=== PATIENT | female | born 2000 | race Caucasian/White ===

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

== ENCOUNTER → 2018-04-28 08:23 | Outpatient (CLI) | payer OTHER, SELFPAY ==
--- NOTE | 2018-04-28 08:32 | XR_ITS ---
XR wrist LT min 3V HISTORY follow-up fracture ITS.REASON: EXTRA-ARTICULAR FX DISTAL LT RADIUS ORDERING PHYSICIAN: Colleen Bettencourt PATIENT AGE: 17 years Comparison: 03/28/2018 FINDINGS: Cortical irregularity involving the central distal aspect of the radius is again noted which may be due to a nondisplaced minimal impaction type fracture. Please correlate with patient's symptoms. No new findings evident. IMPRESSION: Possible mild impaction of the distal radius overall not significant change. Please correlate with patient's symptoms and physical exam
== END ==
PROVIDERS: PCP Family Medicine Geriatric Medicine; Visit Provider Family Medicine Geriatric Medicine
DX: S52.552D Other extraarticular fracture of lower end of left radius, subsequent encounter for closed fracture with routine healing (principal)
CPT/HCPCS: 73110

== ENCOUNTER 2019-11-13 16:17 | Outpatient (RCR) | payer OTHER, SELFPAY | END 2019-11-13 16:45 | disposition home or self-care (01) | LOC: PT 16:17 | PROVIDERS: Visit Provider Orthopaedic Surgery | DX: M65.4 Radial styloid tenosynovitis [de Quervain] (principal); M77.9 Enthesopathy, unspecified | CPT/HCPCS: 97760 ==

== ENCOUNTER 2022-04-22 14:41 | Emergency (ER) | payer OTHER, SELFPAY ==
--- NOTE | 2022-04-22 14:45 | XR_ITS ---
FINAL REPORT CLINICAL HISTORY: injury, pt states that she fell this morning and twisted her ankle FINDINGS: LEFT ANKLE Three views of the left ankle were obtained. There is no acute fracture or dislocation. The joint spaces and mortise are intact. There is no soft tissue abnormality. IMPRESSION: No acute bony abnormality. Reviewed, Interpreted and Dictated by Jareth Waddell III, MD Transcribed by Sol Can Authenticated and [facility]
[2022-04-22 14:50] VITALS: BP 180/96; PULSE 81; RESP 16; TEMP 36.7; O2SAT 98; BMI 37.3
--- NOTE | 2022-04-22 15:12 | HMH.EDUTC ---
[facility] Disposition Clinical Impression: Ankle sprain Qualifiers: Encounter type: initial encounter Involved ligament of ankle: unspecified ligament Laterality: left Qualified Code(s): S93.402A - Sprain of unspecified ligament of left ankle, initial encounter Disposition: Home, Self-Care Condition on Discharge: Good Instructions: Ankle Sprain, DI for Ankle Sprain, How To Perform RICE (Rest, Ice, Compress, Elevate) Additional Instructions: *weight bearing as tolerated *RICE, Rest the extremity, Ice 15-20 minutes 3-4 times daily, Compress- wear the pedro luis wrap as discussed as much as possible to help reduce swelling and pain, Elevate the extremity when at rest *Pedro Luis wrap is for support and help control swelling, use it except in the shower. Be sure that is not to tight but not to loose either *Elevate when resting *Ibuprofen 600-800mg every 6-8 hours as needed for pain an inflammation. If need something more can take Tylenol in between doses of Ibuprofen to help Immediately follow up with your family doctor for new or worsening of symptoms, or no noticeable improvement over the next 3-5 days Referrals: Provider,Referral, MD [Primary Care Provider] - As needed Time of Disposition: 16:40 Medical Decision Making - Delgado Inquiry Pt receiving controlled substance: No Delgado was queried for this patient: No Vital Signs: 04/22/22 14:50 04/22/22 15:53 Temperature 98.1 F 98.1 F Temperature Source Oral Pulse Rate 81 Pulse Rate [Left Brachial] 81 Respiratory Rate 16 16 Blood Pressure 163/96 H Blood Pressure [Left Arm] 180/96 H Blood Pressure Mean [Left Arm] 124 Blood Pressure Source [Left Arm] Automatic Cuff Blood Pressure Position [Left Arm] Sitting 02 Sat by Pulse Oximetry 98 Oxygen Delivery Method Room Air - Radiology Data #1 Image(s): Ankle Image Reviewed: Yes I reviewed the patient's radiology image Preliminary Findings: Normal/NAD, No Fracture Seen [facility] HPI - General Stated complaint: left ankle pain Time Seen by Provider: 04/22/22 15:12 Mode of Arrival: Ambulatory Source of Information: Patient Limitations: No Limitations Description of Symptoms (Recalled from Triage Doc. by RN): PATIENT STATES SHE TWISTED HER LEFT ANKLE TODAY HEENT Symptoms (Recalled from RN notes): No Resp Symptoms (Recalled from RN notes): No Skin Symptoms (Recalled from RN notes): No MS Symptoms (Recalled from RN notes): Yes Functional Status (Recalled from RN notes): WNL - History of Present Illness Provider Complaint: Patient states that she twisted her ankle this morning before she went to work and she has continued to have pain in her left ankle when she walks or puts weight on it States that this evening she was still having pain so she came in to get it checked out - Related Data Previous Rx's Medication Instructions Recorded Ibuprofen [Ibuprofen 600mg 600 mg PO Q6HP PRN #30 tab 10/28/19 Tablet] Allergies Allergy/AdvReac Type Severity Reaction Status Date / Time No Known Allergies Allergy Verified 03/21/20 10:30 - Worker's Comp Is this a Worker's Comp case?: No [facility] History - Hepatitis A Screen Attestation statement:: This patient has been screened for Hepatitis A risk factors. I have reviewed the patient's past medical history: Yes Medical History: Reports:: Supraventricular Tachycardia Denies:: Diabetes Mellitus Type 1 Laterality Cases: Bilateral: Tonsillectomy - Social History Smoking Status: Never smoker Alcohol Intake: never Occupational Status: other Family Hx:: Hypertension ROS Obtained: Yes All systems reviewed & no additional complaints, Yes Systems reviewed as appropriate & no additional complaints - Constitutional Constitutional: Reports system reviewed and no additional complaints, except as docu, Denies body ache, Denies chills, Denies fever(s) - ENT Ears, Nose, Mouth, and Throat: Reports system reviewed and no additional complaints, except as docu - Cardiovascul
[2022-04-22 15:53] VITALS: BP 163/96; PULSE 81; RESP 16; TEMP 36.7; O2SAT 98
== END 2022-04-22 16:01 | disposition home or self-care (01) ==
LOC: UTC 14:44
PROVIDERS: Emergency Provider Nurse Practitioner
DX: S93.402A Sprain of unspecified ligament of left ankle, initial encounter (principal)
CPT/HCPCS: 73610; 99212; G0463

== ENCOUNTER 2025-06-13 14:49 | Emergency (ER) | payer OTHER, SELFPAY ==
--- OUTSIDE RECORDS SUMMARY | 2025-05-09 11:40 | XMS_ITS | Encounter Summary ---
Author Organization [facility] Address [address] [place] [address] Care Team Providers Care Health Unit Coordinator Name Role Phone Provider, Samara Ji Primary Care Provid er Unavailable Reason for Visit * Reason Comments Post-op Follow-up Pt denies pain overa ll doing good. Encounter Details Date Type Department Care Team (Late st Contact Info) Description 05/09/2025 11:40 AM EDT Office Visit Obstetrics & Gynecology [address] [place] [address] Nitin Vanegas MD [address] [place] [address] Postop check (Primary Dx); Primary hypertension Social History Tobacco Use Types Packs/Day Years Used Date Smoking Tobacco: Never Smokeless Tobacco: Never Alcohol Use Standard Drinks/Week Comments Not Currently 0 (1 standard drink = 0.6 oz pur e alcohol) Rare PHQ-2 Answer Date Recorded Patient Health Questionnaire-2 Score 0 05/09/2025 PHQ-9 Answer Date Recorded Patient Health Questionnaire-9 Score 0 12/20/2024 Jamul Depression Scale Answer Date Recorded Jamul Depression Scale Total 0 04/08/2025 The thought of harming myself has occurred to me . Never 04/08/2025 PHQ-2A Answer Date Recorded Patient Health Questionnaire-2 Score 0 03/23/2023 Comments No Sex and Gender Information Value Date Recorded Sex Assigned at Not on file Legal Sex Female 5:54 PM EDT Gender Identity Not on file Sexual Orientation Not on file documented as of this encounter Last Filed Vital Signs Vital Sign Reading Time Taken Comments Blood Pressure 148/92 05/09/2025 11:34 AM EDT Pulse 74 05/09/2025 11:34 AM EDT Temperature 37 C (98.6 F) 05/09/2025 11:34 AM EDT Respiratory Rate - - Oxygen Saturation 99% 05/09/2025 11: 34 AM EDT Inhaled Oxygen Concentration - - Weight 98.4 kg (216 lb 14.9 oz) 025 11:34 AM EDT Height 154.9 cm (5' 1 ) 05/09/2025 11:3 4 AM EDT Body Mass Index 40.99 05/09/2025 11:34 AM EDT documented in this encounter Functional Status * Over the past 2 weeks, how often have you been bothered by any of the following problems? Question Answer Date of Assessment Author Little interest or pleasure in doing things Not at all 05/09/2025 11:36 AM EDT Purvi Champagne Feeling down, depressed, or hopeless Not at all 05/09/2025 11:36 AM EDT Purvi Champagne Patient Health Questionnaire -2 Score 0 05/09/2025 11:36 AM EDT Purvi Champagne * If you checked off any problems on this questionnaire so far, Question Answer Date of Assessment Author How difficult have these problems made it for you to do your work, take care of things at home, or get along with other people? Not difficult at all 05/09/2025 11:36 AM EDT Purvi Champagne documented as of this encounter Miscellaneous Notes * Progress Notes - Nitin Vanegas MD - 05/09/2025 11:40 AM EDT Gynecology Progress Note CC: postop visit S: Gaurang Orta is a 24 y.o. 4wks s/p RA-lap bilateral salpingectomy 04/09/25. Doing well since procedure. No vaginal bleeding/abnormal discharge. Pain well controlled: no longer on narcotic pain meds. No concern about incision healing. Normal bowel/bladder function, no constipation. No fever/chills/body aches. The patients medical, surgical, family, social history were reviewed, as well as her current medications and allergies. Review of Systems O: Vitals: 05/09/25 1134 BP: (!) 148/92 Pulse: 74 Temp: 37 ??C (98.6 ??F) SpO2: 99% Exam: Gen: NAD, well appearing Neuro: AAOx3 Resp: unlabored Abd: soft, nondistended, nontender, well healed laparoscopic incisions Path: Bilateral fallopian tubes without abnormality A/P: Gaurang Orta is a 24 y.o. 4wks s/p RA-lap BS, recovering as expected. Postoperative care - Reviewed pathology - reviewed precautions HCM - last pap neg cytology 02/2023 -- due for repeat cytology 02/2026 Primary HTN - continues nifedipine 60mg BID left over from -- still mildly hypertensive - amenable to establishing care with PCP for HTN mgt & healthcare maintenance. RTC: for annual in 1 year documented in this encounter Plan of Treatment Not on file documented as of this encounter Goals Goal Patient Goal Type Associated Problems Recent Progress Patient-Stated? Author Delayed Delivery Care Plan CPM S20 PP LABOR (OBSTETRICS) No Open Scheduling, Background documented as of this encounter Visit Diagnoses Diagnosis Postop check- Primary Follow-up examination, following unspecified surgery Primary hypertension Unspecified essential hypertension documented in this encounter Additional Health Concerns Active Problems Noted Date Diagnosed Date CPM S20 PP LABOR (OBSTETRICS) 07/28/2022 Assessment Noted Time PHQ-9 Depression Total Score: 0 12/20/19 25 8:35 AM EST A fall risk assessment has been complete d for the patient 05/09/2025 11:36 AM EDT A Body Mass Index follow-up plan has been documented for the patient 05/09/2025 11:57 AM EDT documented as of this encounter Care Teams Health Unit Coordinator Relationship Specialty Start Date End Date Provider, Samara Ji PCP - General 04/21/21 documented as of this encounter
--- NOTE | 2025-06-13 14:53 | ED_ITS ---
<Statement entered by Bree Bunch DO - 06/13/25 19:38> I was consulted by the REUBEN, and we discussed the complexity of problems being addressed. I approve the treatment and management plan for this patient's care in the emergency department, thus performing a substantial portion of the medical decision making. Bree Bunch DO Discharge Plan Disposition Patient Disposition: Home, Self-Care Condition: Good Prescriptions Prescriptions: New cefdinir 300 mg capsule 300 mg PO BID 7 Days Qty: 14 0RF No Action ibuprofen 600 MG tablet 600 mg PO Q6HP PRN (Reason: Mild Pain) Qty: 30 0RF Referrals Follow up/Referrals: Provider,Referral, MD [Primary Care Provider, Medical] - See instructions Activity Restrictions/Add. Instructions Additional Instructions/Restrictions: Please return to the emergency department with any worsening signs or symptoms. Please take your medication as prescribed. Please utilize ibuprofen and Tylenol for symptomatic relief. Clinical Impressions Clinical Impression: UTI (urinary tract infection) Instructions Patient Instructions: Acute Cystitis, DI for Urinary Tract Infection (UTI) Print Language Print Language: Greenlandic Discharge ED Provider: Bree Bunch General Adult HPI General Chief complaint: Back Pain/Injury Stated complaint: left upper back pain Time Seen by Provider: 06/13/25 14:53 Mode of Arrival: Ambulatory Source of Information: Patient Limitations: No Limitations History of Present Illness HPI narrative: 24-year-old female presents the emergency department with left-sided upper back pain located on the right thoracic region, with radiation around to her left flank and into her left-sided rib area, she denies any fever chills chest pain shortness of breath, does endorse remote history of fall 1 week ago through [employer] , admits to nausea no vomiting no constipation no diarrhea, does have some decreased urination, is 2-month status post what sounds like bilateral tubal ligation, states I have not yet had my period yet , denies urinary bladder or bowel dysfunction, denies any radicular type symptomatology, denies any saddle anesthesia. Initial triage vitals are unremarkable, patient denies any alcohol or drug use, other past medical history is unremarkable, she is taken Tylenol for this pain today with little to no relief of her symptomatology. Please note that above description of symptoms, in this electronic medical record under categorization of recalled from ER triage doctor by RN are reflective of an initial nursing assessment, however, is not reflective of my full history and physical exam that was personally taken and clarified. Consequentially, this preceding description of symptoms, which may include the patient's categorized chief complaint in the EMR, do not reflect my personal clinical impression, and the ultimate description of history of present illness and patient stated complaints should be deferred to this section of the note. Unless stated otherwise or congruent with this section of the note, additional signs, symptoms, or incongruence should be interpreted as inaccurate with my clinical impression. Onset (ago): week(s) Related Data Previous Rx's ?Medication ?Instructions ?Recorded ibuprofen 600 mg tablet 600 mg PO Q6HP PRN Mild Pain #30 10/28/19 tabs cefdinir 300 mg capsule 300 mg PO BID 7 days #14 cap s 06/13/25 Allergies Allergy/AdvReac Type Severity Reaction Status Date / Time No Known Allergies Allergy Verified 03/21/20 10:30 [facility] Disclaimer: The information contained in this section may have been updated after the patient was seen, as this information can be updated by other users. Social History Smoking Status: Never smoker alcohol intake: never current occupational status: other Travel in the last 8 weeks?: None Have you lived/traveled outside [place] in past 30 days?: No Contact w/someone who lives/traveled outside US past 30 days?: No Exposure to someone with infectious disease in past 14 days?: No Do you have a fever (greater than 100.4 F or 38 C)?: No Have you tested positive for COVID-19?: No Exposed to someone with COVID-19 in past 14 days?: No Do you have a sore throat?: No Do you have a cough?: No Do you have any weakness?: No Do you have any diarrhea?: No Are you experiencing any unusual bleeding?: No Do you have any muscle aches/pain?: Yes Do you have any abdominal pain?: No Are you experiencing loss of taste or smell?: No Other Medical History Have you received the Pneumonia Vaccine: No ROS Obtained: Yes All systems reviewed & no additional complaints except as documented Physical Exam General General appearance: alert and in no apparent distress Head Head exam: atraumatic and normocephalic Eye Eye exam: Present PERRL and EOMI ENT ENT exam: Present mucous membranes moist Neck Neck exam: Present normal inspection Chest Chest inspection: Present normal inspection and symmetric chest wall rise Respiratory Respiratory exam: Present normal lung sounds bilaterally; Absent respiratory distress Cardiovascular Cardiovascular exam: Present regular rate and normal rhythm Abdominal Exam Abdominal exam: Present soft; Absent tenderness Extremities Exam Extremities exam: Present normal inspection Back Exam Back exam: Present normal inspection, tenderness and paraspinal tenderness Comment: Paraspinal tenderness palpation to the mid thoracic spine, negative C-spine T- spine and L-spine spinal tenderness, negative C-spine paraspinal tenderness palpation, negative L-spine paraspinal spinal tenderness palpation Neurological Exam Neurological exam: Present alert, oriented X3 and other (Moves extremities command, 5 out of 5 strength in the bilateral lower and upper extremities.) Psychiatric Psychiatric exam: Present normal affect Skin Skin exam: Present warm and dry Medical Decision Making Medical Records Medical records reviewed: Yes I reviewed the patient's medical records. Screening: Per USPSTF and CDC recommendations, given the prevalence of disease in our region, it is our hospital?s policy to screen for HIV and viral Hepatitis for all patients aged 18 and over and those with ongoing risk factors. Delgado Inquiry Pt receiving controlled substance: No Delgado was queried for this patient: No Vital Signs: 06/13/25 15:01 06/13/25 15:24 06/13/25 17:17 Temperature 99.1 F 99.1 F Temperature Source Oral Oral Pulse Rate 87 75 Pulse Rate [Right] 87 Respiratory Rate 18 18 16 Blood Pressure 165/115 H 120/78 Blood Pressure [Left Arm] 165/115 H Blood Pressure Mean [Left Arm] 131 Blood Pressure Source Automatic Cuff Automatic Cuff Blood Pressure Source [Left Arm] Automatic Cuff Blood Pressure Position Supine Sitting Blood Pressure Position [Left Arm] Supine 02 Sat by Pulse Oximetry 100 100 98 Oxygen Delivery Method Room Air Room Air Room Air Lab Data Lab results reviewed: Yes I reviewed the patient's lab results. Lab Results 06/13/25 15:03: Urine Color Yellow, Urine Appearance Sl cloudy, Urine pH 6.0, Ur Specific [place] <= 1.005, Urine Protein Negative, Urine Glucose (UA) Negative, Urine Ketones Negative, Urine Blood 2+ A, Urine Nitrate Negative, Urine Bilirubin Negative, Urine Urobilinogen 0.2, Ur Leukocyte Esterase 3+ A, Urine RBC 5-10, Urine WBC 20-50, Ur Squamous Epith Cells 10-20, Urine Bacteria 3+, Urine HCG, Qual Negative 06/13/25 15:20: WBC 9.1, RBC 5.11, Hgb 15.4, Hct 43.4, MCV 84.9, MCH 30.1, MCHC 35.5 H, RDW 12.4, Plt Count 292, MPV 10.5 H, Neut % (Auto) 54.5, Lymph % (Auto) 37.0, [place] % (Auto) 6.5, Eos % (Auto) 1.4, Baso % (Auto) 0.4, Neut # (Auto) 5.0, Lymph # (Auto) 3.4, [place] # (Auto) 0.6, Eos # (Auto) 0.1, Baso # (Auto) 0.0, D- Dimer 0.70 H, Sodium 139, Potassium 4.2, Chloride 105, Carbon Dioxide 26, Anion Gap 12.2, BUN 13, Creatinine 0.70, Estimated Creat Clear 174, Estimated GFR 101, Est GFR ( Amer) 122, Glucose 85, Calcium 9.3, Total Bilirubin 0.3, AST 33, ALT 35, Alkaline Phosphatase 70, Troponin I < 0.01, NT-Pro-B Natriuret Pep 168 H, Total Protein 7.3, Albumin 4.4, Globulin 2.9, Albumin/Globulin Ratio 1.5, Lipase 35 06/13/25 15:20 06/13/25 15:20 Orders (Tests/Meds): ED MEDICATIONS Generic Name Dose Route Start Last Admin Trade Name Freq PRN Reason Stop Dose Admin Ceftriaxone Sodium 2 gm/ 100 mls @ 200 mls/hr 06/13/25 17:30 06/13/25 17:22 Sodium Chloride IV 06/23/25 17:29 200 mls/hr Q24H NICOLE Administration Discontinued Medications Generic Name Dose Route Start Last Admin Trade Name Freq PRN Reason Stop Dose Admin Iopamidol 70 ml 06/13/25 16:19 06/13/25 16:20 Iopamidol-370 (76%);100ml Bottle IV 06/13/25 16:20 70 ml ONCE ONE Administration Ketorolac Tromethamine 15 mg 06/13/25 14:58 06/13/25 15:21 Ketorolac 30mg/Ml Vial IV 06/13/25 14:59 15 mg ONCE ONE Administration Ondansetron HCl 4 mg 06/13/25 14:59 06/13/25 15:22 Ondansetron 4mg/2ml Vial IV 06/13/25 15:00 4 mg ONCE ONE Administration Sodium Chloride 50 ml 06/13/25 16:19 06/13/25 16:20 0.9 % Sodium Chloride 50 Ml Vial IV 06/13/25 16:20 50 ml ONCE ONE Administration Sodium Chloride 10 ml 06/13/25 16:19 06/13/25 16:20 Sodium Chloride 0.9% 10ml Syr (Rad Only) IV 06/13/25 16:20 10 ml ONCE ONE Administration ORDERS Category Date Time Status CT abdomen pelvis w con Stat Cat Scan 06/13/25 16:[address] angio chest PE protocol Stat Cat Scan 06/13/25 16:13 Completed Complete Blood Count Auto Diff Stat Lab 06/13/25 15:20 Completed Comprehensive Metabolic Panel Stat Lab 06/13/25 15:20 Completed D-Dimer Stat Lab 06/13/25 15:20 Completed HIV Combo Stat Lab 06/13/25 15:20 Received Hepatitis C Ab Qual. W/ RFX Stat Lab 06/13/25 15:20 Received Lipase Stat Lab 06/13/25 15:20 Completed NT Pro Brain Natriuretic Pep. Stat Lab 06/13/25 15:20 Completed Troponin I Q3H Lab 06/13/25 18:00 Ordered Troponin I Q3H Lab 06/13/25 21:00 Ordered Troponin I Stat Lab 06/13/25 15:20 Completed Urinalysis and Microscopic Stat Lab 06/13/25 15:03 Completed Urine , HCG Qual. Stat Lab 06/13/25 15:03 Completed Urine Culture Stat Micro 06/13/25 15:03 Received Medical Decision Narrative: 24-year-old female presents the emergency department with left-sided midthoracic back pain, for 1 week, after remote fall, differential diagnosis clued but not limited to, costochondritis, thoracic myofascial strain, cardiac arrhythmia, electrolyte disturbance, PE, ACS, pneumonia, acute UTI among others I discussed this patient's case with the attending physician Dr. Bunch she saw and examined the patient as well. Will obtain basic laboratory studies, D-dimer lipase proBNP troponin urinalysis, urine hCG qualitative, troponin, EKG, will give 15 mg IV Toradol and 4 mg of Zofran for pain and nausea. CBC unremarkable D-dimer is elevated at 0.7, thus will obtain CTA chest without contrast PE protocol CMP unremarkable hCG negative UA is notable for 2+ hematuria, 3+ leukocyte esterase, 20-50 WBCs, 3+ urine bacteria. This will obtain CT and pelvis with contrast to rule out a nephrolithiasis. proBNP is mildly elevated at 168, troponin within normal limits at less than 0.01, lipase in normal limits. I reviewed the patient's CT abdomen pelvis with contrast on the corresponding radiologic report no acute abnormalities identified. I reviewed the CTA chest with and without contrast PE protocol along with the corresponding radiologic report, no evidence of acute pulmonary embolism. Will give 2 g IV Rocephin for acute pyelonephritis versus UTI. I discussed all the results with the patient at the bedside, patient voiced understanding and agreed with current treatment plan/discharge plan, will treat patient for acute UTI, with cefdinir 300 mg p.o. twice daily for 7 days, first dose of ceftriaxone given here in the emergency department. Patient was given strict ED return precautions, patient voiced understanding, will follow-up with PCP in the upcoming days. Critical Care Critical Care Time Critical Care Time: No
[2025-06-13 15:01] VITALS: BP 165/115; PULSE 87; RESP 18; TEMP 37.3; O2SAT 100; BMI 39.0
[2025-06-13 15:07] LABS: Microscopic, Urine URINE MICROSCOPIC (MICROSCOPIC)
--- OUTSIDE RECORDS SUMMARY | 2025-06-13 15:11 | XMS_ITS | Encounter Summary ---
Author Organization Healthcare Address [address] [place] [address] Care Team Providers Care Livestock Haulier Name Role Phone Provider, Samara [place] Primary Care Provid er Unavailable Reason for Visit * Reason Comments Med Refill Encounter Details Date Type Department Care Team (Late st Contact Info) Description 01/22/2023 Refill Obstetrics & Gynecology [address] [place] [address] Savanna Kirkpatrick, LARGE [employer]IMAL HUSBANDRY TECHNICIAN, CN [address] [place] [address] Chronic hypertension affecting Social History Tobacco Use Types Packs/Day Years Used Date Smoking Tobacco: Never Smokeless Tobacco: Never Alcohol Use Standard Drinks/Week Comments Not Currently 0 (1 standard drink = 0.6 oz pur e alcohol) Rare PHQ-2 Answer Date Recorded Patient Health Questionnaire-2 Score 0 01/24/2023 Comments Yes Sex and Gender Information Value Date Recorded Sex Assigned at Not on file Legal Sex Female 5:54 PM EDT Gender Identity Not on file Sexual Orientation Not on file COVID-19 Exposure Response Date Recorded In the last 10 days, have yo u been in contact with someone who was confirmed or suspected to have Coronavirus/COVID-19? No / Unsure 01/24/2023 12:50 PM EDT documented as of this encounter Functional Status * Over the past 2 weeks, how often have you been bothered by any of the following problems? Question Answer Date of Assessment Author Little interest or pleasure in doing things Not at all 01/24/2023 1:38 PM EDT Divya Murphy Feeling down, depressed, or hopeless Not at all 01/24/2023 1:38 PM EDT Divya Murphy Patient Health Questionnaire-2 Score 0 01/24/2023 1:38 PM EDT Moe Murphy documented as of this encounter Plan of Treatment Not on file documented as of this encounter Goals Goal Patient Goal Type Associated Problems Recent Progress Patient-Stated? Author Delayed Delivery Care Plan CPM S[facility] (OBSTETRICS) No Open Scheduling, Background documented as of this encounter Visit Diagnoses Diagnosis Chronic hypertension affecting documented in this encounter Additional Health Concerns Active Problems Noted Date Diagnosed Date CPM S[facility] (OBSTETRICS) 07/28/2022 Assessment Noted Time A fall risk assessment has been complete d for the patient 01/17/2023 1:49 PM EDT documented as of this encounter Care Teams Livestock Haulier Relationship Specialty Start Date End Date Provider, Samara Ji PCP - General 04/21/21 documented as of this encounter
--- OUTSIDE RECORDS SUMMARY | 2025-06-13 15:11 | XMS_ITS | Encounter Summary ---
Author Organization Healthcare Address [address] [place] [address] Care Team Providers Care Inventory Control/Shipping Receiving Name Role Phone Provider, Samara [place] Primary Care Provid er Unavailable Encounter Details Date Type Department Care Team (Late st Contact Info) Description 04/12/2025 Results Follow-Up Obstetrics & Gynecology [address] [place] [address] Nitin Vanegas MD [address] [place] [address] Social History Tobacco Use Types Packs/Day Years Used Date Smoking Tobacco: Never Smokeless Tobacco: Never Alcohol Use Standard Drinks/Week Comments Not Currently 0 (1 standard drink = 0.6 oz pur e alcohol) Rare PHQ-2 Answer Date Recorded Patient Health Questionnaire-2 Score 0 05/09/2025 PHQ-9 Answer Date Recorded Patient Health Questionnaire-9 Score 0 12/20/2024 [place] Depression Scale Answer Date Recorded [place] Depression Scale Total 0 04/08/2025 The thought of harming myself has occurred to me . Never 04/08/2025 PHQ-2A Answer Date Recorded Patient Health Questionnaire-2 Score 0 03/23/2023 Comments No Sex and Gender Information Value Date Recorded Sex Assigned at Not on file Legal Sex Female 5:54 PM EDT Gender Identity Not on file Sexual Orientation Not on file documented as of this encounter Functional Status [...] Purvi Champagne documented as of this encounter Plan of Treatment Not on file documented as of this encounter Goals Goal Patient Goal Type Associated Problems Recent Progress Patient-Stated? Author Delayed Delivery Care Plan CPM S[facility] (OBSTETRICS) No Open Scheduling, Background documented as of this encounter Visit Diagnoses Not on filedocumented in this encounter Additional Health Concerns Active Problems Noted Date Diagnosed Date CPM S[facility] (OBSTETRICS) 07/28/2022 Assessment Noted Time PHQ-9 Depression Total Score: 0 12/20/19 25 8:35 AM EST A fall risk assessment has been complete d for the patient 04/08/2025 9:37 AM EDT A Body Mass Index follow-up plan has been documented for the patient 04/08/2025 11:49 AM EDT documented as of this encounter Care Teams Inventory Control/Shipping Receiving Relationship Specialty Start Date End Date Provider, Samara Ji PCP - General 04/21/21 documented as of this encounter
--- OUTSIDE RECORDS SUMMARY | 2025-06-13 15:11 | XMS_ITS | Encounter Summary ---
Author Organization Healthcare Address [address] [place] [address] Care Team Providers Care Stone Sandblaster Name Role Phone Provider, Samara [place] Primary Care Provid er Unavailable Encounter Details Date Type Department Care Team (Late st Contact Info) Description 02/18/2025 Results Follow-Up Obstetrics & Gynecology [address] [place] [address] Nitin Vanegas MD [address] [place] [address] Social History Tobacco Use Types Packs/Day Years Used Date Smoking Tobacco: Never Smokeless Tobacco: Never Alcohol Use Standard Drinks/Week Comments Not Currently 0 (1 standard drink = 0.6 oz pur e alcohol) Rare PHQ-2 Answer Date Recorded Patient Health Questionnaire-2 Score 0 04/08/2025 PHQ-9 Answer Date Recorded Patient Health Questionnaire-9 Score 0 12/20/2024 [place] Depression Scale Answer Date Recorded [place] Depression Scale Total 0 04/08/2025 The thought of harming myself has occurred to me . Never 04/08/2025 PHQ-2A Answer Date Recorded Patient Health Questionnaire-2 Score 0 03/23/2023 Comments Yes Sex and Gender Information Value [...] pleasure in doing things Not at all 04/08/2025 9:37 AM EDT Purvi Champagne Feeling down, depressed, or hopeless Not at all 04/08/2025 9:37 AM EDT Purvi Champagne Patient Health Questionnaire -2 Score 0 04/08/2025 9:37 AM EDT Purvi Champagne * If you checked off any problems on this questionnaire so far, Question Answer Date of Assessment Author How difficult have these problems made it for you to do your work, take care of things at home, or get along with other people? Not difficult at all 04/08/2025 9:37 AM EDT Purvi Champagne documented as of [...] has been complete d for the patient 02/18/2025 8:41 AM EDT A Body Mass Index follow-up plan has been documented for the patient 02/14/2025 8:34 AM EDT documented as of this encounter Care Teams Stone Sandblaster Relationship Specialty Start Date End Date Provider, Samara Ji PCP - General 04/21/21 documented as of this encounter
--- OUTSIDE RECORDS SUMMARY | 2025-06-13 15:11 | XMS_ITS | Clinical Summary ---
Author Organization [facility] Address [address] [place] [address] Care Team Providers Care Manual Qa Tester Name Role Phone Provider, Samara Ji Primary Care Provid er Unavailable Allergies No known active allergies Medications Blood Pressure Monitoring (Blood Pressure Cuff) miscIndications:C hronic hypertension affecting 1 each 1 (one) time each day. 1 each 09/13/2024 Active NIFEdipine XL (Procardia XL) 60 MG 24 hr tabletIndications :Primary hypertension Take 1 tablet by mouth 2 times a day. Do not crush, chew, or split. 60 tablet 3 05/09/2025 Active Active Problems Problem Noted Date Diagnosed Date GBS bacteriuria 10/03/2024 35 weeks gestation of 08/24/2024 Overview (02/11/2025): labs reviewed: O+ Rubella immune. Other PNL WNL. Baseline P:C 0.1, baseline OBP normal. GBS bacteriuria on 1T UCX -- s/p tx with amoxicillin x7d. Ultrasounds: Dated by LMP c/w 9w TVUS. Anatomy US WNL with limited survey. F/up US 11/23 -- normal completed anatomy, EFW 33%, AC 25%. Growth US 28w & 32w WNL. Genetic Screening: NIPT low risk, H14 negative. Immunizations: Declined flu vax. Tdap 12/20. Delivery Planning: Anticipate - h/o x2 (PP to 2568g). No later than 38w0d for CHTN -- scheduled for 02/26 -- pending US & BP control. Feeding: Breast -- discussed pump RX Contraception: Desires sterilization -- KMA form signed 01/24 & scanned into chart. Assessment & Plan (02/11/2025 1:35 PM EDT): BP elevated again today & gradually increasing at home -- start labetalol 200mg TID plus nifedipine XL 90 mg BID. Extensively reviewed pre-E precautions. Continue vitamins + bASA. Reviewed hydration goals, FKCs. Repeat growth q4w -- last WNL at 32w on 01/17 -- next US 02/14 NSTs 2x/wk Plan for 38w delivery at latest -- IOL scheduled 02/26 @ 38w0d pending cervical exam & ongoing BP control. Reviewed precautions to call or present for evaluation -- reviewed PTL precautions. Assessment & Plan (01/28/2025 1:45 PM EDT): labs reviewed: O+ Rubella immune. Other PNL WNL. Baseline P:C 0.1, baseline OBP normal. GBS bacteriuria on 1T UCX -- s/p tx with amoxicillin x7d. Ultrasounds: Dated by LMP c/w 9w TVUS. Anatomy US WNL with limited survey. F/up US 11/23 -- normal completed anatomy, EFW 33%, AC 25%. Growth US 28w & 32w WNL. Genetic Screening: NIPT low risk, H14 negative. Immunizations: Declined flu vax. Tdap 12/20. Delivery Planning: Anticipate - h/o x2 (PP to 2568g). Discuss timing pending BP control & next growth US. Feeding: Breast -- discussed pump RX Contraception: Desires sterilization -- KMA form signed 01/24 & scanned into chart. Continue vitamins + bASA. Reviewed hydration goals, FKCs. Repeat growth q4w -- last WNL at 32w on 01/17. Reviewed precautions to call or present for evaluation -- reviewed PTL precautions. Assessment & Plan (01/03/2025 10:24 AM EDT): labs reviewed: O+ Rubella immune. Other PNL WNL. Baseline P:C 0.1, baseline OBP normal. GBS bacteriuria on 1T UCX -- s/p tx with amoxicillin x7d. Ultrasounds: Dated by LMP c/w 9w TVUS. Anatomy US WNL with limited survey. F/up US 11/23 -- normal completed anatomy, EFW 33%, AC 25%. Growth US 28w WNL. Genetic Screening: NIPT low risk, H14 negative. Immunizations: Declined flu vax. Tdap 12/20. Delivery Planning: Anticipate - h/o x2 (PP to 2568g) Feeding: Discuss further Contraception: Discuss further. Continue vitamins + bASA. Reviewed hydration goals, FKCs. Repeat growth q4w - scheduled 01/17. Reviewed precautions to call or present for evaluation -- reviewed PTL precautions. Assessment & Plan (12/29/2024 3:57 PM EST): labs reviewed: O+ Rubella immune. Other PNL WNL. Baseline P:C 0.1, baseline OBP normal. GBS bacteriuria on 1T UCX -- s/p tx with amoxicillin x7d. Ultrasounds: Dated by LMP c/w 9w TVUS. Anatomy US WNL with limited survey. F/up US 11/23 -- normal completed anatomy, EFW 33%, AC 25%. Growth US 28w WNL. Genetic Screening: NIPT low risk, H14 negative. Immunizations: Declined flu vax. Tdap today 12/20. Delivery Planning: Anticipate - h/o x2 (PP to 2568g) Feeding: Discuss further Contraception: Discuss further. Continue vitamins + bASA. Reviewed hydration goals, FKCs. Repeat growth in 4w. Reviewed precautions to call or present for evaluation -- reviewed PTL precautions. Assessment & Plan (12/16/2024 7:18 PM EST): labs reviewed: O+ Rubella immune. Other PNL WNL. Baseline P:C 0.1, baseline OBP normal. GBS bacteriuria on 1T UCX -- s/p tx with amoxicillin x7d. Ultrasounds: Dated by LMP c/w 9w TVUS. Anatomy US WNL with limited survey. F/up US 11/23 -- normal completed anatomy, EFW 33%, AC 25%. Genetic Screening: NIPT low risk, H14 negative. Immunizations: Declined flu vax. Tdap for next visit. Delivery Planning: Anticipate - h/o x2 (PP to 2568g) Feeding: Discuss further Contraception: Discuss further. Continue vitamins + bASA. Reviewed hydration goals, FKCs. NST done today for persistent cramping/contractions -- no ctx on tocometry & FHRT reactive. IF this occurs again & persistent, advised pt to present to L&D for evaluation. Reviewed precautions to call or present for evaluation -- reviewed PTL precautions. Assessment & Plan (12/01/2024 1:25 PM EST): labs reviewed: O+ Rubella immune. Other PNL WNL. Baseline P:C 0.1, baseline OBP normal. GBS bacteriuria on 1T UCX -- s/p tx with amoxicillin x7d. Ultrasounds: Dated by LMP c/w 9w TVUS. Anatomy US WNL with limited survey. F/up US 11/23 -- normal completed anatomy, EFW 33%, AC 25%. Genetic Screening: NIPT low risk, H14 negative. Immunizations: Declined flu vax. Need to discuss Tdap for next visit. Delivery Planning: Anticipate - h/o x2 (PP to 2568g) Feeding: Discuss further Contraception: Discuss further. Continue vitamins + bASA. Reviewed precautions to call or present for evaluation -- reviewed PTL precautions. Assessment & Plan (09/23/2024 1:21 PM EST): labs reviewed: O+ Rubella immune. Other PNL WNL. Baseline P:C 0.1, baseline OBP normal. GBS bacteriuria on 1T UCX -- s/p tx with amoxicillin x7d. Pap 02/2023 negative - repeat cytology 2025. Ultrasounds: Dated by LMP c/w today's TVUS - DALILA 03/12/25. NT US discussed & ordered. Genetic Screening: Discussed first and second trimester screening options including NIPT, FTS, NT US. Patient elects for NIPT + NT US at next visit. Immunizations: Briefly discussed flu vax recommendation - will consider. Delivery Planning: Anticipate - h/o x2 (PP to 2568g) Feeding: Discuss further Contraception: Discuss further. Continue vitamins. Continue B6/Unisom/phenergan for N/V of , improving Reviewed precautions to call or present for evaluation including: refractory nausea/vomiting, persistent severe abdominal pain, bright red vaginal bleeding similar to a period, or fever >101F. Assessment & Plan (08/24/2024 7:40 AM EDT): Labs today. H/o GBS bacteriuria in prior - no infection. G/C, Urine culture, UDS today. Pap 02/2023 negative - repeat cytology 2025. Ultrasounds: Dated by LMP c/w today's TVUS - DALILA 03/12/25. NT US discussed & ordered. Genetic Screening: Discussed first and second trimester screening options including NIPT, FTS, NT US. Patient elects for NIPT + NT US at next visit. Immunizations: Briefly discussed flu vax recommendation - will consider. Delivery Planning: Anticipate - h/o x2 (PP to 2568g) Feeding: Discuss further Contraception: Discuss further. Continue vitamins. Rx'd B6/Unisom/phenergan for N/V of . Reviewed precautions to call or present to for evaluation including: refractory nausea/vomiting, persistent severe abdominal pain, bright red vaginal bleeding similar to a period, or fever >101F. Vaginal delivery 02/16/2023 Chronic hypertension 02/12/2021 Chronic hypertension affecting 020 Overview (01/28/2025): H/o GHTN in G2 - required early term induction. Developed CHTN since then - no meds, no additional evaluation, limited primary care since delivery. At new OB visit, BP elevated >160 systolic multiple times without symptoms. Baseline OBP WNL; baseline P:C 0.1 -- not done 24h urine protein. Growth US 32w WNL -- next 36w NSTs 2x/wk Nifed 90 mg BID -- not started yet 11/25 pharmacy delay Assessment & Plan (01/28/2025 1:47 PM EDT): Today 01/24: Continues nifed 60 mg BID at home as unable to start 90 mg BID 2/2 pharmacy delay 32w growth US WNL -- next ordered for 4w UA stable today with small protein. NSTs 2x/wk. Delivery timing depends on BP control and complicating & maternal factors. Assessment & Plan (01/03/2025 10:29 AM EDT): H/o GHTN in G2 - required early term induction. Developed CHTN since then - no meds, no additional evaluation, limited primary care since delivery. At new OB visit, BP elevated >160 systolic multiple times without symptoms. Baseline OBP WNL; baseline P:C 0.1 -- not done 24h urine protein. Today 01/03 MR today -- reports normotensive at home on nifedipine -- no issues with 60mg in AM, 30mg in PM. Increase nifed to 60 mg BID at home + cont bASA Tr protein today -- P:C pending -- may be 2/2 Growth US WNL at 28w -- q4w growth US ordered Reviewed recommendation for NSTs starting at 32w. Schedule. Delivery timing depends on BP control and complicating & maternal factors. Assessment & Plan (12/29/2024 4:00 PM EST): H/o GHTN in G2 - required early term induction. Developed CHTN since then - no meds, no additional evaluation, limited primary care since delivery. At new OB visit, BP elevated >160 systolic multiple times without symptoms. Baseline OBP WNL; baseline P:C 0.1 -- not done 24h urine protein. Today 12/20 Normotensive today & reports normotensive at home on nifedipine -- increased to 60mg in AM, 30mg in PM last visit. Continue nifed 60 mg qAM, 30 mg qPM at home + bASA Growth US WNL today 12/20 -- q4w growth US ordered Reviewed recommendation for NSTs starting at 32w. Delivery timing depends on BP control and complicating & maternal factors. Assessment & Plan (12/16/2024 7:20 PM EST): H/o GHTN in G2 - required early term induction. Developed CHTN since then - no meds, no additional evaluation, limited primary care since delivery. At new OB visit, BP elevated >160 systolic multiple times without symptoms. Today 12/07: BP at home better with nifed 30 BID: SBP 120s with wrist cuff (approx accurate based on clinic comparison) Continue nifed 30 mg BID + bASA Growth US WNL 11/23 -- repeat growth US q4w ordered Reviewed recommendation for NSTs starting at 32w. Delivery timing depends on BP control and complicating & maternal factors. Assessment & Plan (12/01/2024 1:28 PM EST): H/o GHTN in G2 - required early term induction. Developed CHTN since then - no meds, no additional evaluation, limited primary care since delivery. At new OB visit, BP elevated >160 systolic multiple times without symptoms. Today 11/23: Taking labetalol 100mg PRN approx 1-2 x/d -- feels strange with this med. Switch to nifedipine XL 30 mg BID -- stressed importance of regular dosing to limit MR BP and promote normal growth. Continue bASA Growth US WNL today 11/23 -- repeat growth US q4w ordered Reviewed recommendation for NSTs starting at 32w. Delivery timing depends on BP control and complicating & maternal factors. Assessment & Plan (09/23/2024 1:17 PM EST): H/o GHTN in G2 - required early term induction. Developed CHTN since then - no meds, no additional evaluation, limited primary care since delivery. At new OB visit, BP elevated >160 systolic multiple times without symptoms. Did not check BP at home since then. Today, BP 159/89 initially, rechecked to 137/87. Reviewed significance of hypertension in & crucial importance of blood pressure control during early to promote normal placental function & growth, and later to decrease risk of pre-eclampsia and related maternal risks of stroke, liver disease, seizure, kidney disease, placental abruption. Stressed that best outcomes seen with tight BP control <140/90 throughout . Reviewed that baby ASA (81mg) starting 12-16 weeks helps decrease risk of pre-eclampsia. Reviewed risk of growth restriction & abnormal placental function + role of ultrasound to evaluate for growth, fluid, UAD every 4 weeks starting 28w. Reviewed recommendation for NSTs starting at 32w. Delivery timing depends on BP control and complicating & maternal factors. Plan: Instructed to check BP daily at rest: seated upright with arms relaxed, legs uncrossed. BP log given for recording values. Instructed to call or present to ED if persistently >160/110. As unable to check BP at home since last visit, recommended starting PO antihypertensive. Pt amenable. Start labetalol 200 mg TID, Rx'd. BP cuff Rx'd. Baseline CBC, OBP, urine P:C at new OB visit all WNL. 24h protein supplies & instructions given today. Discussed starting ASA 81mg for pre-E ppx -- Rx'd today. Assessment & Plan (08/24/2024 7:37 AM EDT): H/o GHTN in G2 - required early term induction. Developed CHTN since then - no meds, no additional evaluation, limited primary care since delivery. Today, BP elevated >160 systolic multiple times. Pt denies any symptoms. Does not have BP cuff at home - does not check at home. Reviewed significance of hypertension in & crucial importance of blood pressure control during early to promote normal placental function & growth, and later to decrease risk of pre-eclampsia and related maternal risks of stroke, liver disease, seizure, kidney disease, placental abruption. Stressed that best outcomes seen with tight BP control <140/90 throughout . Reviewed that baby ASA (81mg) starting 12-16 weeks helps decrease risk of pre-eclampsia. Reviewed risk of growth restriction & abnormal placental function + role of ultrasound to evaluate for growth, fluid, UAD every 4 weeks starting 28w. Reviewed recommendation for NSTs starting at 32w. Delivery timing depends on BP control and complicating & maternal factors. Plan: Instructed to check BP daily at rest: seated upright with arms relaxed, legs uncrossed. BP log given for recording values. Instructed to call or present to ED if persistently >160/110. Recommended starting meds for hypertensive control. Pt prefers to keep home log for 1-2 weeks and decide at next visit. Baseline CBC, OBP, urine P:C today. Plan for 24h urine protein at next visit. Discussed starting ASA 81mg at 12-16 weeks for pre-eclampsia prophylaxis. Resolved Problems Problem Noted Date Diagnosed Date Resolved Date Supervision of high risk pre gnancy, antepartum 08/16/2022 02/16/2023 Supervision of other normal 07/13/2022 11/29/2022 Encounters Date Type Department Care Team Description 05/09/2025 11:40 AM EDT Office Visit Obstetrics & Gynecology [address] [place] [address] Nitin Vanegas MD Postop check (Primary Dx); Primary hypertension 05/09/2025 Travel 04/12/2025 Results Follow-Up Obstetrics & Gynecology [address] [place] [address] Nitin Vanegas MD 04/12/2025 Orders Only Obstetrics & Gynecology [address] [place] [address] Nitin Vanegas MD 04/10/2025 Travel 04/10/2025 Telephone Obstetrics & Gynecology [address] [place] [address] Nitin Vanegas MD 04/08/2025 9:20 AM EDT Visit Obstetrics & Gynecology [address] [place] [address] Nitin Vanegas MD Consultation for female sterilization (Primary Dx); Encounter for routine follow-up; Chronic hypertension affecting 04/08/2025 Travel 04/04/2025 Telephone Obstetrics & Gynecology [address] [place] [address] Nitin Vanegas MD from Last 3 Months Immunizations Immunization Administration Dates Next Due Influenza, injectable, quadr ivalent, preservative free 08/16/2022,08/04/2020 Tdap 12/20/2024,11/29/2022,09/03/2020 Family History Medical History Relation Name Comments No Known Problems Brother No Known Problems Daughter Diabetes Father Wayne Type 1 No Known Problems Maternal Grandfather No Known Problems Maternal Grandmother Hypothyroidism Mother No Known Problems Mother's Brother No Known Problems Mother's Sister No Known Problems Paternal Grandfather No Known Problems Paternal Grandmother No Known Problems Sister No Known Problems Son Relation Name Status Comments Brother Alive Daughter Alive Father Wayne Alive Maternal Grandfather Alive Maternal Grandmother Alive Mother Alive Mother's Brother Alive Mother's Sister Alive Paternal Grandfather Paternal Grandmother Sister Alive Son Alive Social History Tobacco Use Types Packs/Day Years Used Date Smoking Tobacco: Never Smokeless Tobacco: Never Tobacco Cessation:Counseling Given: Not Answered Alcohol Use Standard Drinks/Week Comments Not Currently 0 (1 standard drink = 0.6 oz pur e alcohol) Rare PHQ-2 Answer Date Recorded Patient Health Questionnaire-2 Score 0 05/09/2025 PHQ-9 Answer Date Recorded Patient Health Questionnaire-9 Score 0 12/20/2024 [place] Depression Scale Answer Date Recorded [place] Depression Scale Total 0 04/08/2025 The thought of harming myself has occurred to me . Never 04/08/2025 PHQ-2A Answer Date Recorded Patient Health Questionnaire-2 Score 0 03/23/2023 Comments No Sex and Gender Information Value Date Recorded Sex Assigned at Not on file Legal Sex Female 5:54 PM EDT Gender Identity Not on file Sexual Orientation Not on file Last Filed Vital Signs Vital Sign Reading Time Taken Comments Blood Pressure 148/92 05/09/2025 11:34 AM EDT Pulse 74 05/09/2025 11:34 AM EDT Temperature 37 C (98.6 F) 05/09/2025 11:34 AM EDT Respiratory Rate 20 12/20/2024 8:34 AM EST Oxygen Saturation 99% 05/09/2025 11: 34 AM EDT Inhaled Oxygen Concentration - - Weight 98.4 kg (216 lb 14.9 oz) 025 11:34 AM EDT Height 154.9 cm (5' 1 ) 05/09/2025 11:3 4 AM EDT Body Mass Index 40.99 05/09/2025 11:34 AM EDT Plan of Treatment Health Maintenance Due Date Last Done Comments [facility]-Infant/Child/Adol SDOH Screenings 1998 [facility]-Varicella Vaccines (1 of 2 - 13+ 2-dose series) 2011 HPV Vaccines (1 - 3-dose series) 2013 [facility]- SDOH Screenings 2016 [facility]-Adult SDOH Screenings 2016 [facility]-Hepatitis B Vaccines (1 of 3 - 19+ 3-dose series) 2017 [facility]-UAYFR-80 Vaccine (3 - season) 2024 04/08/2021, 03/11/2021 [facility]-Influenza Vaccine (#1) 2025 08/16/2022, [facility]-Pap Smear 03/23/2026 03/23/2023 [facility]-Depression Screening 05/09/2026 025, 04/08/2025, 12/20/2024 [facility]-DTaP,Tdap,and Td Vaccines (4 - Td or Tdap) 12/20/2034 12/20/2024, 11/29/2022, 09/03/2020 [facility]-Zoster Vaccines (1 of 2) 2048 [facility]-HIV Screening Completed 08/16/2024, , 04/15/2020 [facility]-Hepatitis C Screening Completed 2023, 07/13/2022, 04/15/2020 [facility]-Obesity Intervention Completed 025, 04/08/2025, 03/06/2025, Additional history exists [facility]-HIB Vaccines Aged Out No longer e ligible based on patient's age to complete this topic [facility]-Hepatitis A Vaccines Aged Out No longer eligible based on patient's age to complete this topic [facility]-IPV Vaccines Aged Out No longer e ligible based on patient's age to complete this topic [facility]-Pneumococcal Vaccine: Pediatrics (0 to 5 Years) and At-Risk Patients (6 to 49 Years) Aged Out No longer eligible based on patient's age to complete this topic [facility]-Rotavirus Vaccines Aged Out No lo nger eligible based on patient's age to complete this topic Goals Goal Patient Goal Type Associated Problems Recent Progress Patient-Stated? Author Delayed Delivery Care Plan CPM S20 PP LABOR (OBSTETRICS) No Open Scheduling, Background Procedures Procedure Name Priority Date/Time Associated Diagnosis Comments SURGICAL PATHOLOGY EXAM Routine 04/11/20 8:41 AM EDT POCT , URINE Routine 04/08/2025 10:36 AM EDT Consultation for female sterilization HEPATITIS C ANTIBODY W/REFLEX TO HCV QUANT PCR Routine 08/16/2024 3:39 PM EDT 10 weeks gestation of HIV 1/2 ANTIBODY/ANTIGEN SCREEN WITH REFLEX TO HIV I/II DIFFERENTIATION Routine 08/16/2024 3:39 PM EDT 10 weeks gestation of PAP TEST - CYTOLOGY Routine 03/23/2023 4 :34 PM EDT Pap smear for cervical cancer screening from Last 3 Months or Most Recently Relevant to Health Maintenance Results * Surgical Pathology Exam (04/11/2025 8:41 AM EDT) Tissue us Nitin Vanegas MD LAB PATHOLOGY ORDERABLES Final Result * POCT Urine (04/08/2025 10:36 AM EDT) Urine - Point of Care Negative Negative - women after 7 weeks gestation and dilute urine (specific gravity <1.010) may have false negative results. Plasma HCG testing is recommended. Test performed at Point of Care. INTERNAL QC OK, PREG URINE yes KIT LOT NUMBER, PREG URINE [id number] KIT EXPIRATION DATE, PREG URINE 07/20/2026 Urine Urine specimen obtained by clean catch procedure / Unknown 04/08/2025 10:36 AM EDT us Nitin Vanegas MD POINT OF CARE TEST ENTER/EDIT ORDERABLES Final Result * HIV 1 & 2 Antibody/Antigen Screen (08/16/2024 3:39 PM EDT) HIV 1 & 2 Antibody/Antigen Screen Non Reactive Non Reactive 08/16/2024 6:55 PM EDT [facility] Comment:Screening for HIV 1 & 2 antibodies, and P24 antigen is NONREACTIVE. No confirmatory testing is required. Blood Venous blood specimen / Unknown Venipuncture / Unknown 08/16/2024 3:39 PM EDT 08/16/2024 6:17 PM EDT Nitin Vanegas MD LAB BLOOD ORDERABLES Final Res ult Performing Organization Address City/[facility]/ZIP Co de Phone Number [facility] [address] [place] [address] * Hepatitis C Antibody w/Reflex to HCV Quant PCR (08/16/2024 3:39 PM EDT) Hepatitis C Antibody Negative Negative 08/16/2024 6:[address] [facility] Blood Venous blood specimen / Unknown Venipuncture / Unknown 08/16/2024 3:39 PM EDT 08/16/2024 6:10 PM EDT Nitin Vanegas MD LAB BLOOD ORDERABLES Final Res ult Performing Organization Address City/[facility]/ZIP Co de Phone Number [facility] [address] [place] [address] * Pap Test (03/23/2023 4:34 PM EDT) Case Report Cytology Case: [id number] Authorizing Provider: Savanna Kirkpatrick APRN, Collected: 03/23/2023 1634 CNM Ordering Location: Obstetrics & Gynecology Received: 03/24/2023 1116 First Screen: Nathalia Maxwell Specimen: ThinPrep Pap Test, Liquid-Based Cervical/Vaginal 03/30/2023 3:19 PM EDT [facility] Interpretation NEGATIVE FOR INTRAEPITHELIAL LESION OR MALIGNANCY 03/30/2023 3:19 PM EDT [facility] at 1519 EDT Specimen Adequacy Satisfactory for evaluation; endocervical/carey sformation zone component present. Slide scanned and imaged by ThinPrep Imaging System with manual review of all selected torres. 03/30/2023 3:19 PM EDT [facility] Cervical cytology is a screening test primarily for squamous cancers and precursors and has associated false negative and positive results. New technologies such as liquid based sampling may decrease but will not eliminate all false negative results. Regular screening and follow-up of unexplained clinical signs and symptoms are recommended to minimize false negative results. Please see the ASCCP website (www.asccp.org)fo r followup recommendations. If HPV testing was requested, correlation with the results is suggested (please call Microbiology at [phone] for results). 03/30/2023 3:19 PM EDT [facility] Menstrual Status Post- 023 3:19 PM EDT [facility] Contraceptive History Not Applicable 03/30/2023 3:19 PM EDT [facility] Screening Type Routine Screen 2022 3:19 PM EDT [facility] High Risk? No 03/30/2023 3:19 PM EDT [facility] HPV Testing Requested? Request HPV testing if ASCUS or LSIL. 03/30/2023 3:19 PM EDT [facility] Previous Cancer History No 03/30/2023 3:19 PM EDT [facility] Clinical Information Z12.4 - Pap smear for cervical cancer screening [ICD-10-CM] 03/30/2023 3:19 PM EDT [facility] Swab Vaginal and cervical cytologic material / Unknown Non-blood Collection / Unknown 03/23/2023 4:34 PM EDT 03/24/2023 11:16 AM EDT Savanna Kirkpatrick APRN, CNM LAB CYTOLOGY ORDERA BLES Final Result [facility] [address] [place] [id number] from Last 3 Months or Most Recently Relevant to Health Maintenance Additional Health Concerns Active Problems Noted Date Diagnosed Date CPM S20 PP LABOR (OBSTETRICS) 07/28/2022 Insurance [employer] [facility] MEDICAID [employer] Care Teams Manual Qa Tester Relationship Specialty Start Date End Date Provider, Samara [place] PCP - General 04/21/21
--- OUTSIDE RECORDS SUMMARY | 2025-06-13 15:11 | XMS_ITS | Encounter Summary ---
Author Organization Healthcare Address [address] [place] [address] Care Team Providers Care Fitness Technician Name Role Phone Provider, Samara [place] Primary Care Provid er Unavailable Encounter Details Date Type Department Care Team (Late st Contact Info) Description 04/04/2025 Telephone Obstetrics & Gynecology [address] [place] [address] Nitin Vanegas MD [address] [place] [address] Social History Tobacco Use Types Packs/Day Years Used Date Smoking Tobacco: Never Smokeless Tobacco: Never Alcohol Use Standard Drinks/Week Comments Not Currently 0 (1 standard drink = 0.6 oz pur e alcohol) Rare PHQ-2 Answer Date Recorded Patient Health Questionnaire-2 Score 0 04/08/2025 PHQ-9 Answer Date Recorded Patient Health Questionnaire-9 Score 0 12/20/2024 [place] Depression Scale Answer Date Recorded [place] Depression Scale Total 0 04/08/2025 The thought [...] has been complete d for the patient 03/06/2025 10:33 AM EDT A Body Mass Index follow-up plan has been documented for the patient 03/06/2025 1:57 PM EDT documented as of this encounter Care Teams Fitness Technician Relationship Specialty Start Date End Date Provider, Samara Ji PCP - General 04/21/21 documented as of this encounter
--- OUTSIDE RECORDS SUMMARY | 2025-06-13 15:11 | XMS_ITS | Encounter Summary ---
Author Organization Healthcare Address [address] [place] [address] Care Team Providers Care It Trainer Name Role Phone Provider, Samara [place] Primary Care Provid er Unavailable Encounter Details Date Type Department Care Team (Late st Contact Info) Description 04/12/2025 Orders Only Obstetrics & Gynecology [address] [place] [address] Nitin Vanegas MD [address] [place] [address] Social History Tobacco Use Types Packs/Day Years Used Date Smoking Tobacco: Never Smokeless Tobacco: Never Alcohol Use Standard Drinks/Week Comments Not Currently 0 (1 standard drink = 0.6 oz pur e alcohol) Rare PHQ-2 Answer Date Recorded Patient Health Questionnaire-2 Score 0 04/08/2025 PHQ-9 Answer Date Recorded Patient Health Questionnaire-9 Score 0 12/20/2024 Nelson Depression Scale Answer Date Recorded Nelson Depression Scale Total 0 04/08/2025 The thought of harming myself has occurred to me . Never 04/08/2025 PHQ-2A Answer Date Recorded Patient Health Questionnaire-2 Score 0 03/23/2023 Comments No Sex and Gender Information Value Date Recorded Sex Assigned at Not on file Legal Sex Female 5:54 PM EDT Gender Identity Not on file Sexual Orientation Not on file documented as of this encounter Plan of Treatment Not on file documented as of this encounter Goals Goal Patient Goal Type Associated Problems Recent Progress Patient-Stated? Author Delayed Delivery Care Plan CPM S[facility] (OBSTETRICS) No Open Scheduling, Background documented as of this encounter Procedures Procedure Name Priority Date/Time Associated Diagnosis Comments SURGICAL PATHOLOGY EXAM Routine 04/11/2025 8:41 AM EDT documented in this encounter Results * Surgical Pathology Exam (04/11/2025 8:41 AM EDT) Tissue us Nitin Vanegas MD LAB PATHOLOGY ORDERABLES Final Result documented in this encounter Visit Diagnoses Not on filedocumented [...] documented as of this encounter Care Teams It Trainer Relationship Specialty Start Date End Date Provider, Samara Ji PCP - General 04/21/21 documented as of this encounter
--- OUTSIDE RECORDS SUMMARY | 2025-06-13 15:11 | XMS_ITS | Encounter Summary ---
Author Organization Healthcare Address [address] [place] [address] Care Team Providers Care Compressed Yeast Supervisor Name Role Phone Provider, Samara Ji Primary Care Provid er Unavailable Encounter Details Date Type Department Care Team (Latest Contact Info) Description 05/09/2025 Travel Social History Tobacco Use Types Packs/Day Years Used Date Smoking Tobacco: Never Smokeless Tobacco: Never Alcohol Use Standard Drinks/Week Comments Not Currently 0 (1 standard drink = 0.6 oz pur e alcohol) Rare PHQ-2 Answer Date Recorded Patient Health Questionnaire-2 Score 0 05/09/2025 PHQ-9 Answer Date Recorded Patient Health Questionnaire-9 Score 0 12/20/2024 [place] Depression Scale Answer Date Recorded [place] Depression Scale Total 0 04/08/2025 The thought [...] documented as of this encounter Care Teams Compressed Yeast Supervisor Relationship Specialty Start Date End Date Provider, Samara [place] PCP - General 04/21/21 documented as of this encounter
--- OUTSIDE RECORDS SUMMARY | 2025-06-13 15:11 | XMS_ITS | Encounter Summary ---
Author Organization Healthcare Address [address] [place] [address] Care Team Providers Care Customer Engineer Name Role Phone Provider, Samara [place] Primary Care Provid er Unavailable Encounter Details Date Type Department Care Team (Late st Contact Info) Description 04/10/2025 Telephone Obstetrics & Gynecology [address] [place] [address] Nitin Vanegas MD [address] [place] [address] Social History Tobacco Use Types Packs/Day Years Used Date Smoking Tobacco: Never Smokeless Tobacco: Never Alcohol Use Standard Drinks/Week Comments Not Currently 0 (1 standard drink = 0.6 oz pur e alcohol) Rare PHQ-2 Answer Date Recorded Patient Health Questionnaire-2 Score 0 05/09/2025 PHQ-9 Answer Date Recorded Patient Health Questionnaire-9 Score 0 12/20/2024 [place] Depression Scale Answer Date Recorded [place] Depression Scale Total 0 04/08/2025 The thought [...] as of this encounter Miscellaneous Notes * Telephone Encounter - Chel Carroll - 04/10/2025 10:46 AM EDT Patient has been scheduled. * Telephone Encounter - Neda Donnelly - 04/10/2025 9:55 AM EDT Clinical Concern/Question Reason for Call: Pt states she needs to schedule a follow up from her procedure. Please call. Best contact number: [phone] (mobile) Optimal time of day to reach caller: ANYTIME Additional comments/information from caller: Not Applicable Note: Please do not reply to this message. Follow-up communication and further actions as a result of this message need to be communicated with the patient directly, if the patient is not active onMyChart. If the patient is active on MyChart, they will receive notification of the communication/outcome via [employer]. documented in this encounter Plan of Treatment [...] documented as of this encounter Care Teams Customer Engineer Relationship Specialty Start Date End Date Provider, Samara Ji PCP - General 04/21/21 documented as of this encounter
[2025-06-13 15:21] LABS: Bilirubin,Urine Negative (Negative); Color,Urine YELLOW (Yellow); Glucose,Urine (UA) Negative (Negative); Ketones,Urine Negative (Negative); Leukocyte Esterase,Urine 3+ (Negative); PH,Urine 6.0 (5.0-8.5); Protein,Urine Negative (Negative); Specific Gravity, Urine <= 1.005 (1.005-1.030); Urobilinogen,Urine 0.2 EU/dl (0.2)
[2025-06-13] MEDS: KETOROLAC 30MG/ML VIAL 15 MG IV (15:21)
[2025-06-13] MEDS: ONDANSETRON 4MG/2ML VIAL 4 MG IV (15:22)
[2025-06-13 15:24] VITALS: BP 165/115; PULSE 87; RESP 18; TEMP 37.3; O2SAT 100
[2025-06-13 15:31] LABS: Urine Pregnancy, HCG Qual. Negative (Negative)
[2025-06-13 15:34] LABS: Hematocrit 43.4 % (37.0-47.0); Hemoglobin 15.4 g/dL (12.2-16.2); Immature Granulocytes % 0.2 %; Mean Corpuscular HGB Conc 35.5 g/dL (31.8-35.4); Mean Corpuscular Hemoglobin 30.1 pg (27.0-31.2); Mean Corpuscular Volume 84.9 fl (81-99); Nucleated Red Blood Cells % 0 %; Platelet Count 292 K/mm3 (142-424); Red Blood Count 5.11 M/mm3 (4.20-5.40); Red Cell Distribution Width-SD 38.0 fL; White Blood Count 9.1 K/mm3 (4.8-10.8)
--- NOTE | 2025-06-13 15:37 | ECG_ITS ---
APPROVED REPORT Exam: Resting ECG HR:86 bpm ECG Measurements Heart Rate 86 AXES NC 138 P 58 QRSd 101 QRS 87 QT 352 T 41 QTc 395 Conclusion Normal sinus rhythm at [address] or T wave changes concerning for Electronically signed by : Bree Bunch, 06/14/2025 01:05:18
[2025-06-13 15:41] LABS: Alanine Aminotransferase 35 U/L (12-78); Albumin Level 4.4 g/dl (3.5-5.0); Albumin/Globulin Ratio 1.5 (1.1-1.8); Alkaline Phosphatase 70 U/L (38-126); Anion Gap 12.2 mEq/L (5-15); Aspartate Amino Transferase 33 U/L (14-36); Bilirubin,Total 0.3 mg/dl (0.2-1.3); Blood Urea Nitrogen 13 mg/dl (7-17); Calcium 9.3 mg/dl (8.4-10.2); Carbon Dioxide 26 mmol/L (22.0-30.0); Chloride 105 mmol/L (98-107); Creatinine Clearance Estimated 174 mL/min (50-200); Creatinine,Serum 0.70 mg/dl (0.52-1.04); Estimated Glomerular Filt Rate 101 ml/min (>60); GFR (African American) 122 ML/MIN (>60); Globulin 2.9 g/dL (1.3-3.2); Glucose 85 mg/dl (74-100); Lipase 35 U/L (23-300); Potassium 4.2 mmoL/L (3.5-5.1); Sodium 139 mmol/L (136-145); Total Protein,Serum 7.3 g/dl (6.3-8.2)
[2025-06-13 15:46] LABS: D-Dimer 0.70 ug/mL (0.0-0.5)
[2025-06-13 15:54] LABS: NT Pro Brain Natriuretic Pep. 168 pg/mL (0-125)
[2025-06-13 16:09] LABS: WBC,Urine 20-50 #/hpf (0-3)
[2025-06-13 16:10] LABS: Bacteria,Urine 3+ /lpf
--- NOTE | 2025-06-13 16:13 | CT_ITS ---
PROCEDURE INFORMATION: Exam: CT Abdomen And Pelvis With Contrast Exam date and time: 06/13/2025 4:23 PM Age: 24 years old Clinical indication: Abdominal pain; Additional info: Left-sided flank pain, dysuria TECHNIQUE: Imaging protocol: Computed tomography of the abdomen and pelvis with contrast. 3D rendering (Not supervised by radiologist): MIP and/or 3D reconstructed images were created by the technologist. Radiation optimization: All CT scans at this facility use at least one of these dose optimization techniques: automated exposure control; mA and/or kV adjustment per patient size (includes targeted exams where dose is matched to clinical indication); or iterative reconstruction. Contrast material: ISOVUE; Contrast volume: 70 ml; Contrast route: IV; COMPARISON: CT ABDOMEN PELVIS 01/10/2017 (report only, no images) FINDINGS: Lungs: Visualized lung bases demonstrate no acute abnormality. Liver: No focal liver lesion is identified. Gallbladder and biliary ducts: No visualized gallstones (not all gallstones are visible via CT). No wall thickening or surrounding inflammation. No bile duct dilation. Pancreas: No peripancreatic inflammatory change or significant pancreatic duct dilation. Spleen: Splenic size is within normal limits. No focal splenic lesion is identified. Accessory splenules. Adrenal glands: The adrenal glands are unremarkable. Kidneys and ureters: The kidneys enhance symmetrically. No hydronephrosis. No renal perfusion defects or perinephric inflammation. No stones in the kidneys or ureters. Stomach and bowel: The stomach is unremarkable. No small bowel obstruction or acute inflammatory change. The colon is not obstructed. No evidence of diverticulosis or acute inflammatory change. Appendix: The appendix is identified. No evidence of acute appendicitis. Intraperitoneal space: Likely trace physiologic free fluid in the pelvis. No free air. Vasculature: The abdominal aorta is nonaneurysmal. Circumaortic left renal vein. Lymph nodes: Unremarkable. No enlarged lymph nodes. Urinary bladder: No definite wall thickening accounting for incomplete distension. No gas in the lumen or wall. No stones. Reproductive: 20 mm dominant follicle in the left ovary requires no additional imaging. Right ovary and the uterus are unremarkable. Bones/joints: No acute fracture is identified. Soft tissues: Small fat containing umbilical hernia. IMPRESSION: No acute abnormality is identified.
--- NOTE | 2025-06-13 16:13 | CT_ITS ---
PROCEDURE INFORMATION: Exam: CTA Chest With Contrast Exam date and time: 06/13/2025 4:23 PM Age: 24 years old Clinical indication: Other: SOA, left-sided chest/rib pain TECHNIQUE: Imaging protocol: Computed tomographic angiography of the chest with contrast. Exam focused on the arteries. 3D rendering (Not supervised by radiologist): MIP and/or 3D reconstructed images were created by the technologist. Radiation optimization: All CT scans at this facility use at least one of these dose optimization techniques: automated exposure control; mA and/or kV adjustment per patient size (includes targeted exams where dose is matched to clinical indication); or iterative reconstruction. Contrast material: ISO 370; Contrast volume: 70 ml; Contrast route: INTRAVENOUS (IV); COMPARISON: CT ABDOMEN PELVIS W CON 06/13/2025 4:23 PM FINDINGS: Pulmonary arteries: No evidence of acute pulmonary embolism. Aorta: The thoracic aorta is non-aneurysmal. No evidence of dissection. Thymus: Minimal residual thymus. Lungs: No consolidation or pulmonary edema. No ground-glass infiltrates. Pleural spaces: No pleural effusion or pneumothorax. Heart: The heart is not enlarged. No pericardial effusion. Lymph nodes: No enlarged lymph nodes. Intraperitoneal space: Visualized upper abdomen demonstrates no acute abnormality. Bones/joints: No acute fracture is identified. Soft tissues: Unremarkable as visualized. IMPRESSION: No evidence of acute pulmonary embolism.
--- NOTE | 2025-06-13 16:17 | PC.NURSE ---
Pt to RAD
[2025-06-13 16:20] LABS: Troponin I < 0.01 ng/ml (0.00-0.034)
[2025-06-13] MEDS: 0.9 % SODIUM CHLORIDE 50 ML VIAL IV (16:20)
[2025-06-13] MEDS: IOPAMIDOL-370 (76%);100ML BOTTLE 70 ML IV (16:20)
[2025-06-13] MEDS: SODIUM CHLORIDE 0.9% 10ML SYR (RAD ONLY) 10 ML IV (16:20)
--- NOTE | 2025-06-13 17:12 | PC.NURSE ---
Dr. Bunch @ bedside
[2025-06-13 17:17] VITALS: BP 120/78; PULSE 75; RESP 16; O2SAT 98
[2025-06-13 17:45] VITALS: BP 119/80; PULSE 82; RESP 15; TEMP 37.3; O2SAT 99
[2025-06-13 18:04] LABS: Hepatitis C Ab Qual. W/ RFX NEGATIVE (Negative)
== END 2025-06-13 17:46 | disposition home or self-care (01) ==
PROVIDERS: Physician Assistant; Emergency Provider Student in an Organized Health Care Education/Training Program
DX: N39.0 Urinary tract infection, site not specified (principal); M54.6 Pain in thoracic spine; R11.0 Nausea
CPT/HCPCS: 71275; 74177; 80053; 81001; 81025; 83690; 83880; 84484; 85025; 85378; 86803; 87086; 87088; 87186; 87389; 93005; 96365; 96375; 99284; 99285; J0696; J1885; J2405; Q9967